=== PATIENT | male | born 1980 | race Caucasian/White ===

== ENCOUNTER 2016-05-06 10:22 | Emergency (ER) | payer OTHER ==
[~2016-05-06] VITALS: Ht 182.9 cm; Wt 90.9 kg
[~2016-05-06 10:22] MED LIST: AMBIEN 5MG TABLE5 MG PO; AMITRIPTYLINE H10 M1 PO; AMOXICILLIN 8751 TAB PO; ATIVAN 0.50.5 MG/TAB PO; BACTRIM DS 8001 TAB PO; DOXYCYCLINE 10100 MG PO; EFFEXOR 3737.5 MG/TA PO; ELAVIL100 MG PO; FIORICET 325 MG1 TA1 PO; FLEXERIL 1010 MG/TAB PO; HCTZ12.5TAB PO; IBU800 M1 PO; IMITREX 25MG TA25 MG PO; KLONOPIN 0.5MG0.5 MG PO; KLONOPIN 1MG1 MG PO; LORTAB 5/500 501 TAB PO; NAPROSYN500 MG PO; NAPROXEN 3375 MG/TAB PO; NO HOME MEDICATIONS; NORCO 325 MG-51 TAB PO; NORCO 325 MG-7.1 TAB PO; PHENERGAN 25 TA25 MG PO; PROTONIX40 MG PO; REGLAN 10MG10 MG/TAB PO; ROBAXIN 75750 MG/TAB PO; SEROQUEL50 MG PO; TYLENOL 500MG500 MG PO; ULTRAM 50MG TAB50 MG PO; ZOFRAN8 MG PO
[2016-05-06 10:25] VITALS: BP 177/94; TEMP 98
[2016-05-06] MEDS ORDERED: NORCO 325 MG-51 TAB PO (10:42)
[2016-05-06] MEDS ORDERED: FLEXERIL 1010 MG/TAB PO (10:42)
[2016-05-06] MEDS ORDERED: MOTRIN 800800 MG/TAB PO (10:42)
[2016-05-06 11:32] LABS: PH 6 (5-8); SQUAMOUS EPITHELIAL 0-2 /hpf; URINE APPEARANCE Clear; URINE BACTERIA None Seen /hpf; URINE BILIRUBIN Negative (NEGATIVE); URINE BLOOD Negative (NEGATIVE); URINE COLOR Yellow; URINE GLUCOSE Negative (NEGATIVE); URINE KETONE Negative (NEGATIVE); URINE RBC None Seen /hpf; URINE UROBILINOGEN Negative (NEGATIVE); URINE WBC 0-2 /hpf
[2016-05-06 11:58] VITALS: PULSE 102
== END 2016-05-06 11:59 | disposition home or self-care (01) ==
LOC: COL.ER 10:22
PROVIDERS: Emergency Medicine
DX: M54.5 Low back pain (principal)
CPT/HCPCS: J1170; J1885; J2405

== ENCOUNTER 2016-06-20 21:53 | Emergency (ER) | payer OTHER ==
[~2016-06-20] VITALS: Ht 180.3 cm; Wt 90.0 kg
[~2016-06-20 21:53] MED LIST changes: +MOTRIN 800800 MG/TAB PO
[2016-06-20 21:55] VITALS: BP 117/77; TEMP 98.3
[2016-06-20] MEDS ORDERED: AMOXICILLIN/CLA1 TA1 PO (23:09)
[2016-06-20] MEDS ORDERED: NORCO 325 MG-51 TAB PO (23:09)
[2016-06-20 23:26] VITALS: PULSE 94
== END 2016-06-20 23:30 | disposition home or self-care (01) ==
LOC: COL.ER 21:53
DX: L05.01 Pilonidal cyst with abscess (principal); L02.214 Cutaneous abscess of groin; L02.211 Cutaneous abscess of abdominal wall; F90.9 Attention-deficit hyperactivity disorder, unspecified type; F41.9 Anxiety disorder, unspecified; F32.9 Major depressive disorder, single episode, unspecified
CPT/HCPCS: J0696

== ENCOUNTER 2016-06-21 12:45 | Outpatient (RCR) | payer OTHER ==
[~2016-06-21 12:45] MED LIST changes: +AMOXICILLIN/CLA1 TA1 PO
== END 2016-07-23 11:11 | disposition home or self-care (01) ==
LOC: WSPT 12:45
DX: M25.872 Other specified joint disorders, left ankle and foot (principal)
CPT/HCPCS: G0283-GP

== ENCOUNTER 2016-08-03 12:23 | Emergency (ER) | payer OTHER ==
[~2016-08-03] VITALS: Ht 180.3 cm; Wt 87.3 kg
[2016-08-03 12:30] VITALS: BP 140/89; TEMP 98.9
[2016-08-03] MEDS ORDERED: FLEXERIL 1010 MG/TAB PO (12:33)
[2016-08-03] MEDS ORDERED: ADDERALL20 MG PO (12:33)
[2016-08-03] MEDS ORDERED: WELLBUTRIN XL300 M1 PO (12:33)
[2016-08-03 13:25] VITALS: PULSE 78
== END 2016-08-03 13:25 | disposition home or self-care (01) ==
LOC: COL.ER 12:23
DX: J02.9 Acute pharyngitis, unspecified (principal); Z20.818 Contact with and (suspected) exposure to other bacterial communicable diseases
CPT/HCPCS: J0561

== ENCOUNTER 2016-10-27 04:10 | Emergency (ER) | payer SELFPAY ==
[~2016-10-27] VITALS: Ht 180.3 cm; Wt 88.6 kg
[~2016-10-27 04:10] MED LIST changes: +ADDERALL20 MG PO; +WELLBUTRIN XL300 M1 PO
[2016-10-27 04:20] VITALS: BP 143/86; PULSE 98; TEMP 98.2
== END 2016-10-27 06:06 | disposition left against medical advice (07) ==
LOC: COL.ER 04:10
DX: G43.909 Migraine, unspecified, not intractable, without status migrainosus (principal)

== ENCOUNTER 2017-02-03 04:35 | Emergency (ER) | payer OTHER ==
[~2017-02-03] VITALS: Ht 180.3 cm; Wt 86.4 kg
[2017-02-03 04:39] VITALS: BP 137/98; TEMP 98.2
[2017-02-03] MEDS ORDERED: IMITREX 25MG TA25 MG PO (04:44)
[2017-02-03 06:50] VITALS: PULSE 83
== END 2017-02-03 07:27 | disposition home or self-care (01) ==
LOC: COL.ER 04:35
DX: G43.909 Migraine, unspecified, not intractable, without status migrainosus (principal); F17.210 Nicotine dependence, cigarettes, uncomplicated; Z98.890 Other specified postprocedural states
CPT/HCPCS: J1885; J3030

== ENCOUNTER 2017-02-21 06:30 | Emergency (ER) | payer SELFPAY ==
[~2017-02-21] VITALS: Ht 180.3 cm; Wt 88.6 kg
[2017-02-21 06:37] VITALS: TEMP 98.4
[2017-02-21 08:46] VITALS: BP 137/88; PULSE 93
== END 2017-02-21 08:49 | disposition home or self-care (01) ==
LOC: COL.ER 06:30
DX: S09.90XA Unspecified injury of head, initial encounter (principal); G43.909 Migraine, unspecified, not intractable, without status migrainosus; J45.909 Unspecified asthma, uncomplicated; F31.9 Bipolar disorder, unspecified; F17.210 Nicotine dependence, cigarettes, uncomplicated; F12.90 Cannabis use, unspecified, uncomplicated; W00.0XXA Fall on same level due to ice and snow, initial encounter; W22.8XXA Striking against or struck by other objects, initial encounter
CPT/HCPCS: J1200; J1885; J2765; J7030

== ENCOUNTER 2018-07-19 12:41 | Emergency (ER) | payer SELFPAY ==
[~2018-07-19] VITALS: Ht 180.3 cm; Wt 92.3 kg
[2018-07-19 12:47] VITALS: TEMP 97.9
[2018-07-19] MEDS ORDERED: LIDODERM 5% PATC1 EA TP (13:35)
[2018-07-19] MEDS ORDERED: FLEXERIL 1010 MG/TAB PO (13:35)
[2018-07-19 14:25] VITALS: BP 132/86; PULSE 81
== END 2018-07-19 14:26 | disposition home or self-care (01) ==
LOC: COL.ER 12:41
DX: M54.5 Low back pain (principal); G40.909 Epilepsy, unspecified, not intractable, without status epilepticus; F31.9 Bipolar disorder, unspecified; F17.210 Nicotine dependence, cigarettes, uncomplicated
CPT/HCPCS: J1885

== ENCOUNTER 2019-08-22 15:45 | Emergency (ER) | payer BC ==
[~2019-08-22] VITALS: Ht 182.9 cm; Wt 84.1 kg
[~2019-08-22 15:45] MED LIST changes: +LIDODERM 5% PATC1 EA TP
[2019-08-22 15:52] VITALS: BP 137/90; TEMP 98.3
[2019-08-22] MEDS ORDERED: SEROQUEL50 MG PO (16:48)
[2019-08-22] MEDS ORDERED: NORVASC 5MG5 MG/TAB PO (16:49)
[2019-08-22] MEDS ORDERED: SUDAFED 12 HOU120 MG PO (16:50)
[2019-08-22] MEDS ORDERED: DOXYCYCLINE 10100 MG PO (17:31)
[2019-08-22 17:45] VITALS: PULSE 88
== END 2019-08-22 17:45 | disposition home or self-care (01) ==
LOC: COL.ER 15:45
DX: L03.116 Cellulitis of left lower limb (principal); L02.416 Cutaneous abscess of left lower limb; G43.909 Migraine, unspecified, not intractable, without status migrainosus; F32.9 Major depressive disorder, single episode, unspecified; F41.9 Anxiety disorder, unspecified; F17.210 Nicotine dependence, cigarettes, uncomplicated

== ENCOUNTER 2020-06-15 21:13 | Emergency (ER) | payer BC ==
[~2020-06-15] VITALS: Ht 180.3 cm; Wt 90.5 kg
[~2020-06-15 21:13] MED LIST changes: +NORVASC 5MG5 MG/TAB PO; +SUDAFED 12 HOU120 MG PO
[2020-06-15 21:46] LABS: BASO # 0.1 (0.0-0.2); BASO % 0.8 % (0.0-2.0); EOS # 0.2 (0.0-0.7); GRAN # 4.9 (1.4-6.5); GRAN % 49.1 % (42.2-75.2); HEMOGLOBIN 16.7 g/dl (13.5-18.0); LYMPH % 40.1 % (20.0-51.0); MEAN CELL VOLUME 89 fl (80.0-100.0); MEAN CORPUSCULAR HEMOGLOBIN 31 pg (27.0-31.0); MEAN CORPUSCULAR HGB CONC 35 g/dl (33.0-37.0); MEAN PLATELET VOLUME 9.3 fl (7.4-10.4); MONO # 0.8 (0.1-0.6); MONO % 7.8 % (1.7-9.3); PLATELET COUNT 308 K/mm3 (130-400); RED BLOOD COUNT 5.41 M/mm3 (4.20-5.60); REDCELL DISTRIBUTION WIDTH-CV 12.3 % (11.5-14.5)
[2020-06-15 21:58] LABS: ALANINE AMINOTRANSFERASE 41 U/L (4-49); ALBUMIN 4.5 gm/dL (3.5-5.0); ALKALINE PHOSPHATASE 60 U/L (50-136); ANION GAP 9 mmol/L (7-16); AST,SGOT 35 U/L (15-37); BILIRUBIN,TOTAL 0.9 mg/dL (0.0-1.0); BLOOD UREA NITROGEN 18 mg/dL (9-20); CALCIUM 9.3 mg/dL (8.4-10.2); CARBON DIOXIDE 23 mmol/L (22-30); CHLORIDE 104 mmol/L (98-107); CREATININE, serum 1.06 (0.66-1.25); GLUCOSE 88 mg/dL (74-106); LIPASE 112 U/L (23-300); POTASSIUM 4.2 mmol/L (3.4-5.0); SODIUM 136 mmol/L (137-145)
[2020-06-15 22:13] LABS: TROPONIN-I < 0.012 ng/mL (0.000-0.035)
[2020-06-15] MEDS ORDERED: BENTYL 20MG20 MG/TAB PO (23:42)
[2020-06-15 23:57] VITALS: BP 129/86; PULSE 95; TEMP 97.8
== END 2020-06-15 23:57 | disposition home or self-care (01) ==
LOC: COL.ER 21:13
PROVIDERS: Emergency Medicine
DX: R10.11 Right upper quadrant pain (principal); R11.0 Nausea; I10 Essential (primary) hypertension
CPT/HCPCS: J2270; J2405; J7030; Q9967

== ENCOUNTER 2021-02-02 09:46 | Emergency (ER) | payer BC ==
[~2021-02-02] VITALS: Ht 180.3 cm; Wt 95.9 kg
[~2021-02-02 09:46] MED LIST changes: +BENTYL 20MG20 MG/TAB PO
[2021-02-02 09:51] VITALS: TEMP 98.8
[2021-02-02] MEDS ORDERED: MEDROL 4MG DOSPA4 MG PO (11:00)
[2021-02-02] MEDS ORDERED: NORCO 325 MG-51 TAB PO (11:00)
[2021-02-02 11:03] VITALS: BP 147/87; PULSE 93
== END 2021-02-02 11:09 | disposition home or self-care (01) ==
LOC: COL.ER 09:46
DX: M54.50 Low back pain, unspecified (principal); I10 Essential (primary) hypertension; F41.9 Anxiety disorder, unspecified; Z79.899 Other long term (current) drug therapy
CPT/HCPCS: J2270; J3360

== ENCOUNTER 2021-09-23 22:21 | Emergency (ER) | payer BC ==
[~2021-09-23] VITALS: Ht 180.3 cm; Wt 91.4 kg
[~2021-09-23 22:21] MED LIST changes: +MEDROL 4MG DOSPA4 MG PO
[2021-09-23 22:27] VITALS: TEMP 97.3
[2021-09-23] MEDS ORDERED: NORCO 325 MG-51 TAB PO (23:20)
[2021-09-23] MEDS ORDERED: BACTRIM DS 8001 TAB PO (23:20)
[2021-09-23 23:32] VITALS: BP 134/85; PULSE 81
== END 2021-09-23 23:33 | disposition home or self-care (01) ==
LOC: COL.ER 22:21
DX: L02.31 Cutaneous abscess of buttock (principal); F17.210 Nicotine dependence, cigarettes, uncomplicated